=== PATIENT | female | born 1935 | race Hispanic/Latino ===

== ENCOUNTER → 2018-07-29 | Outpatient (CLI) | payer MEDICARE | END | disposition home or self-care (01) | LOC: RAH 13:22 | PROVIDERS: ATTEND Podiatrist | DX: E10.621 Type 1 diabetes mellitus with foot ulcer (principal); E10.51 Type 1 diabetes mellitus with diabetic peripheral angiopathy without gangrene; M20.41 Other hammer toe(s) (acquired), right foot; M86.671 Other chronic osteomyelitis, right ankle and foot; Z79.4 Long term (current) use of insulin | CPT/HCPCS: 93922 ==